=== PATIENT | male | born 1960 | race Caucasian/White ===

== ENCOUNTER 2024-02-29 15:31 | Emergency (ER) | payer MEDICARE, OTHER ==
[~2024-02-29] VITALS: Ht 180.3 cm; Wt 99.3 kg
[~2024-02-29 15:31] MED LIST: ANDROGEL1.25 GM TD; BENTYL10 MG PO; CIALIS5 MG PO; LEVOTHYROXINE150 MCG PO; LIPITOR20 MG PO; LIPITOR40 MG PO; LISINOPRIL20 MG PO; ZOFRAN4 MG PO
[2024-02-29 16:45] VITALS: BP 132/80
== END 2024-02-29 16:45 | disposition home or self-care (01) ==
LOC: ED 15:31
DX: S16.1XXA Strain of muscle, fascia and tendon at neck level, initial encounter (principal); S09.90XA Unspecified injury of head, initial encounter; W19.XXXA Unspecified fall, initial encounter; I10 Essential (primary) hypertension; E03.9 Hypothyroidism, unspecified; Z87.891 Personal history of nicotine dependence; Z79.890 Hormone replacement therapy; Z79.899 Other long term (current) drug therapy
CPT/HCPCS: 36415; 70450; 72125; 99283-25; G0480